=== PATIENT | female | born 1995 | race Caucasian/White ===

== ENCOUNTER 2017-05-28 15:27 | Day surgery (SDC) | payer BC ==
[~2017-05-28 15:27] MED LIST: DOXYCYCLINE HYCLATE 100 MG TABLET PO PRN
[2017-05-28] MEDS ORDERED: DOXYCYCLINE HYCLATE 100 MG TABLET PO PRN (15:30)
[2017-05-28] MEDS ORDERED: RINGERS SOLUTION,LACTATED 1,000 ML IV PRN (15:30)
--- OUTSIDE RECORDS SUMMARY | 2017-05-28 15:31 | XMS REPORT | Clinical Summary ---
:1995 Author Organization [email or web address] Address Unavailable [place] [address] Care Team Providers Name Role Phone Unavailable Primary Care Provider Unavailable Source Comments This disclosure is being made pursuant to the [employer] program and maynot contain all information available regarding this [email or web address] Allergies Not on File Current Medications Be aware that medications may not be up to date as of this document. Alwaysverify current medications with the patient. Not on file Active Problems Not on file Social History Tobacco Use Types Packs/Day Years Used Date Never Assessed Sex Assigned at Date Recorded Not on file Last Filed Vital Signs Not on file Plan of Treatment Health Maintenance Due Date Last Done Comments HPV Vaccine (F:[id number],M: 9-22) (1 of 3 - Female 3 Dose 02/26/2008 Series) CHLAMYDIA SCREENING 2013 Meningococcal Vaccine (1 of 1) 2013 Tetanus/Pertussis (1 - Tdap) 02/26/2016 INFLUENZA IMMUNIZATION (#1) 2016 Results Not on filefrom Last 3 Months
--- OUTSIDE RECORDS SUMMARY | 2017-05-28 15:31 | XMS REPORT | Encounter Summary ---
:1995 Author Organization [facility] [place] [address] Care Team Providers Name Role Phone Unavailable Primary Care Provider Unavailable Reason for Referral Diagnostic Radiology (Routine) Status Reason Specialty Diagnoses / Referred By Referred To Procedures Contact Contact Authorized Diagnoses Positive TB test Ramses Medeiros Procedures XR CHEST 2 VIEWS PA AND SAVANNA Hernandez MD [address] [id number] Encounter Details Date Type Department Care Team Description 02/09/2017 Orders Only [facility] Vika Crespo, Positive TB test [facility] [employer] (Primary Dx) [address] [phone] [place], [place] [id number] Social History Tobacco Use Types Packs/Day Years Used Date Never Assessed Sex Assigned at Date Recorded Not on file as of this encounter Plan of Treatment Name Priority Associated Diagnoses Order Schedule XR CHEST 2 VIEWS PA AND Routine Positive TB test Expected: 02/09/2017 LAT (Approximate), Expires: 02/09/2018 as of this encounter Visit Diagnoses Diagnosis Positive TB test - Primary Nonspecific reaction to tuberculin skin test without active tuberculosis in this encounter
[2017-05-28] MEDS ORDERED: LIDOCAINE HCL 50 ML VIAL IJ ONE (17:01)
[2017-05-28] MEDS ORDERED: RINGERS SOLUTION,LACTATED 1,000 ML IV ONE (17:09)
--- NOTE | 2017-05-28 17:33 | OR ---
Operative Report - Dictated Report Narrative: DATE OF PROCEDURE: 05/28/2017 INDICATION: 22-year-old with 9 week 1 day embryonic demise noted on ultrasound at routine scheduled OB appointment. PREOPERATIVE DIAGNOSIS: 9 week 1 day embryonic demise, missed POSTOPERATIVE DIAGNOSIS: Same PROCEDURE: Suction curettage SURGEON: Paco Sharma D.O. BUNCHER HAND: None ANESTHESIA: IV sedation with local paracervical block ESTIMATED BLOOD LOSS: Minimal URINE OUTPUT: Not recorded FLUID REPLACEMENT: 400 mL FINDINGS: Uterus sounded to 10 cm. Moderate amount of products of conception. SPECIMEN(S): Products of conception TECHNIQUE: Patient was taken to the operating room and placed in dorsal lithotomy position after adequate IV sedation. The anterior lip of the cervix was grasped with a long Allis clamp and paracervical block was given using 1% lidocaine with epinephrine. A 9 mm curved suction curet was inserted through the cervical canal into the uterine cavity. Suction was applied and the products of conception were removed. All instruments were removed from the cervix and vagina. Sponge, lap, instrument, needle count correct x 2. DISPOSITION: The patient was transferred to postanesthesia care unit in good condition.
[2017-05-28] MEDS ORDERED: MORPHINE SULFATE 2 MG/ML DISP.SYRIN IV PRN (17:43)
[2017-05-28] MEDS ORDERED: oxyCODONE HCL/ACETAMINOPHEN 1 TAB TABLET PO PRN (17:44)
[2017-05-28] MEDS ORDERED: IBUPROFEN 800 MG TABLET PO PRN (17:45)
[2017-05-28 18:53] VITALS: BP 104/57
== END 2017-05-28 15:28 | disposition home or self-care (01) ==
LOC: AMB 15:27
PROVIDERS: ATTEND Obstetrics & Gynecology
PROC: 10D17ZZ Extraction of Products of Conception, Retained, Via Natural or Artificial Opening (ICD-10-PCS; principal; 2017-05-28 16:30)
DX: O02.1 Missed abortion (principal); F32.9 Major depressive disorder, single episode, unspecified; F41.9 Anxiety disorder, unspecified; K21.9 Gastro-esophageal reflux disease without esophagitis; Z87.891 Personal history of nicotine dependence; Z68.38 Body mass index [BMI] 38.0-38.9, adult